=== PATIENT | male | born 1965 | race Caucasian/White ===

== ENCOUNTER 2016-12-10 08:29 | Emergency (ER) | payer OTHER ==
[2016-12-10] MEDS ORDERED: PROPARACAINE 0.5% 15 ML OPHT DROP ONE (08:43)
[2016-12-10 08:49] VITALS: BP 164/78; PULSE 73; RESP 18; TEMP 98; O2SAT 97
--- NOTE | 2016-12-10 09:50 | UCPHY ---
H & P Time Seen by Provider: 12/10/16 08:37 Patient Type: Established HPI/ROS: CHIEF COMPLAINT: Sense of foreign body in the right eye HISTORY OF PRESENT ILLNESS: previously healthy 51-year-old male who does not use contact lenses. He was doing some work with metal on Saturday. Got a hot tub. However is only for Saturday morning he started noticing some sensation of foreign object in right eye. He is able to explore look with a magnifying lens on his camera and found that he had had a foreign body located about 4 o'clock he has been unable to get to remove despite irrigation and flush in the. He continues to bother him. He has photosensitivity but no photophobia. Been no drainage. Contact Lenses No Eye drops no Eye surgery no ROS: Constitutional - no fevers or chills or rigors Eyes - no diplopia, blurred vision, or discharge ENT - no earache, change in hearing, difficulty swallowing, sore throat Smoking Status: Never smoked Physical Exam: General Appearance: Alert, no distress. Afebrile. Normal phonation. No respiratory distress. Though photosensitive, not truly photophobic. Eyes: Pupils equal and round no pallor or injection. No icterus. Lids without changes. No ptosis. [Moderate] erythema of bulbar and eyelid conjunctival surface without flare or limbal predominance. No spasm or pain with light. No preauricular nodes. There is indeed a foreign body present at approximately 4 o'clock which is just on the inside of the limbus. It has a halo around it compatible with a rust ring. Psych: Calm. Constitutional: Initial Vital Signs Temperature (C) 36.6 C 12/10/16 08:47 Heart Rate 73 12/10/16 08:47 Respiratory Rate 18 12/10/16 08:47 Blood Pressure 164/78 H 12/10/16 08:47 O2 Sat (%) 97 12/10/16 08:47 O2 Delivery Mode Room Air Allergies/Adverse Reactions: No Known Allergies Allergy (Verified 04/30/15 20:38) Home Medications: Medication Instructions Recorded Hydrocodone Bit/Acetaminophen 1 - 2 tab PO Q4-6PRN #15 tab 08/02/13 [Vicodin 5/500] Medical Decision Making ED Course/Re-evaluation: We look similar to were unable to find in July. Thereby I made a phone call to Dr. Putnam, ophthalmology cotton washer who accepted the patient as a case that they would be able to remove the foreign object. Patient was sent here directly. Differential Diagnosis: differential diagnosis includes but is not limited to: Corneal foreign body, rust ring, hypopyon, high penetration injury. Departure - Departure Disposition: Home, Routine, Self-Care Condition: Good Instructions: Eye Foreign Body (ED) Additional Instructions: Go directly to Dr. William Gregg @ [address] [place] [address]. [address] [place] [id number] Referrals: NONE *PRIMARY CARE P,. [Primary Care Provider] - As per Instructions - PQRS PQRS Measurement: Not applicable
== END 2016-12-10 09:36 | disposition home or self-care (01) ==
LOC: CED 08:29
DX: S00.251A Superficial foreign body of right eyelid and periocular area, initial encounter (principal)